=== PATIENT | male | born 1975 | race American Indian/Alaskan Native ===

== ENCOUNTER 2018-08-31 01:51 | Emergency (ER) | payer SELFPAY ==
[2018-08-31 02:04] VITALS: BP 126/73
[2018-08-31] MEDS ORDERED: IBUPROFEN PO ONE ×2 (02:24→02:28)
--- NOTE | 2018-08-31 02:24 | Emergency Department Report ---
Upper Extremity - HPI Chief Complaint: Extremity Injury, Upper Stated Complaint: SWOLLEN LT HAND Time Seen by Provider: 08/31/18 02:14 Upper Extremity: Left Shoulder Occurred When: 2 Days Mechanism: Fall Severity: moderate Symptoms: Yes Pain with Movement, No Deformity, No Limited Range of Movement, No Numbness, No Weakness, No Swelling, No Bruising/Ecchymosis, No Laceration or Abrasion Other History: 43-year-old -Spanish male presents to the emergency room for left shoulder and left arm pain. Patient reports he noticed swelling in his left hand. Patient states that he fell Monday morning and landed on his back. Pain is worse in his left shoulder and arm. Patient denies any pain in his hand. Patient's taken nothing for pain management. He has no past medical history currently takes no medications has no known drug allergies. ED Review of Systems ROS: Stated complaint: SWOLLEN LT HAND Other details as noted in HPI Comment: All other systems reviewed and negative Musculoskeletal: arthralgia (left shoulder) ED Past Medical Hx - Past Medical History Previous Medical History?: No - Surgical History Past Surgical History?: No - Social History Smoking Status: Never Smoker Substance Use Type: None, Alcohol - Medications Home Medications: Home Medications Medication Instructions Recorded Confirmed Last Taken Type Baclofen [Lioresal] 10 mg PO TID #15 tab 08/31/18 Unknown Rx Ibuprofen [Motrin 600 MG tab] 600 mg PO Q8H #30 tablet 08/31/18 Unknown Rx Upper Extremity Exam - Exam General: Vital signs noted. No distress. Alert and acting appropriately. Head and Torso: Yes Back Tenderness (left scapla), No HEENT Abnormality, No Neck Tenderness, No Chest/Lungs Abnormality, No Abdominal Tenderness Shoulder Exam: Yes Normal Range of Motion in Shoulder, No Shoulder Tenderness, No Clavicle Tenderness, No Shoulder Deformity, No AC Joint Tenderness Arm Exam: No Arm/Humerus Tenderness, No Arm Deformity Elbow: No Elbow Tenderness, No Normal Range of Motion in Elbow, No Elbow Deformity Forearm: No Forearm Tenderness, No Forearm Deformity, No Pain with Pronation, No Pain with Supination Wrist: Yes Normal ROM in Wrist, No Wrist Tenderness, No Wrist Deformity, No Snuffbox Tenderness, No Pain with Axial Thumb Compression Hand: Yes Normal ROM in Digit(s), No Hand Tenderness, No Hand Deformity, No Digit Tenderness (mouth swelling nontender), No Digit(s) Deformity, No Tendon Dysfunction CMS Exam: No Broken Skin, No Normal Distal Pulses, No Normal Capillary Refill, No Normal Distal Sensation ED Course Vital Signs 08/31/18 01:57 Temperature 98.6 F Pulse Rate 73 Respiratory 20 Rate Blood Pressure 126/73 O2 Sat by Pulse 97 Oximetry ED Medical Decision Making - Medical Decision Making Patient has been evaluated by this provider in fast track. Ibuprofen given for pain management Patient does have ecchymotic area to his left scapular area with some tenderness to palpate. Patient is full range of motion of the shoulder. Patient will be discharged home on ibuprofen and baclofen. I discussed the patient is not able to drive heavy machinery while taking baclofen. Patient verbalized understanding. Critical care attestation.: If time is entered above; I have spent that time in minutes in the direct care of this critically ill patient, excluding procedure time. ED Disposition Clinical Impression: Swelling of left hand Fall Qualifiers: Encounter type: initial encounter Qualified Code(s): W19.XXXA - Unspecified fall, initial encounter Contusion, scapular region Qualifiers: Encounter type: initial encounter Laterality: left Qualified Code(s): S40.012A - Contusion of left shoulder, initial encounter Disposition: DC-01 TO HOME OR SELFCARE Is pt being admited?: No Does the pt Need Aspirin: No Condition: Stable Instructions: Fall Prevention (ED), Shoulder Sprain (ED) Additional Instructions: Please take pain medication as needed. Please take baclofen which is a muscle relaxant as needed only. Please do not operate heavy machinery while taking baclofen. Please increase her water intake while taking ibuprofen. Follow up with orthopedist if her symptoms persist or gets worse. Prescriptions: Baclofen [Lioresal] 10 mg PO TID #15 tab Ibuprofen [Motrin 600 MG tab] 600 mg PO Q8H #30 tablet Referrals: BAKARI LOPEZ MD [Staff Physician] - 3-5 Days Forms: Work/School Release Form(ED)
== END 2018-08-31 02:38 | disposition home or self-care (01) ==
LOC: ED 01:51
DX: S40.012A Contusion of left shoulder, initial encounter (principal); M79.89 Other specified soft tissue disorders; W18.30XA Fall on same level, unspecified, initial encounter; Y93.89 Activity, other specified; Y92.89 Other specified places as the place of occurrence of the external cause; Y99.8 Other external cause status
CPT/HCPCS: 99282